=== PATIENT | female | born 2000 | race Caucasian/White ===

== ENCOUNTER 2020-03-13 10:10 | Outpatient (REF) | payer OTHER, SELFPAY ==
[2020-03-15 15:42] LABS: C. trachomatis RNA TMA NOT DETECTED (NOT DETECTED); N. gonorrhoeae RNA TMA NOT DETECTED (NOT DETECTED)
== END 2020-03-13 10:11 | disposition home or self-care (01) ==
LOC: HO.LAB 10:10
PROVIDERS: Visit Provider Advanced Practice Midwife
DX: Z01.419 Encounter for gynecological examination (general) (routine) without abnormal findings (principal); Z11.3 Encounter for screening for infections with a predominantly sexual mode of transmission
CPT/HCPCS: 36415; 87491; 87591; 88142

== ENCOUNTER → 2020-11-12 11:53 | Outpatient (BNVA) | payer OTHER, SELFPAY | PROVIDERS: Visit Provider Advanced Practice Midwife ==

== ENCOUNTER → 2020-12-18 14:04 | Outpatient (BNVA) | payer OTHER, SELFPAY | PROVIDERS: Visit Provider Advanced Practice Midwife | DX: Z30.46 Encounter for surveillance of implantable subdermal contraceptive (principal) | CPT/HCPCS: 11982 ==

== ENCOUNTER 2021-03-17 13:08 | Outpatient (REF) | payer OTHER, SELFPAY ==
[2021-03-18 07:22] LABS: CT PCR NOT DETECTED (Not Detect.)
[2021-03-18 07:23] LABS: NG PCR NOT DETECTED (Not Detect.)
== END 2021-03-17 13:09 | disposition home or self-care (01) ==
LOC: HO.LAB 13:08
PROVIDERS: Visit Provider Advanced Practice Midwife
DX: Z11.3 Encounter for screening for infections with a predominantly sexual mode of transmission (principal)
CPT/HCPCS: 87491; 87591

== ENCOUNTER 2024-12-03 15:53 | Emergency (ER) | payer OTHER, SELFPAY ==
--- NOTE | ~2024-12-03 | US_ITS ---
CLINICAL HISTORY: heavy vaginal bleeding x 1 mo US pelvis transvaginal and transabdominal with Doppler Comparison: US - PELVIS ULTRASOUND [id number] - 12/14/13 18:35 EDT Findings: Transvaginal and transabdominal scanning performed. Anteverted uterus is 7.7 cm length. Normal myometrium. Heterogeneous endometrium measures 11 mm in thickness. Scattered nabothian cysts. Right ovary not visualized. Left ovary 2.5 x 1.4 x 1.8 cm, only seen on transabdominal exam. Normal color Doppler of of the left ovary identified. Spectral analysis not provided. No free fluid. IMPRESSION: No evidence of left ovarian torsion. Nonvisualization of the right ovary. Thickened endometrium may be a combination of physiologic and/or related to vaginal bleeding. Clinical correlation with follow-up advised. This document has been electronically signed by: Ritchie Beard MD on 12/03/2024 17:34:04
[2024-12-03 15:59] VITALS: BP 154/82; PULSE 96; RESP 18; TEMP 36.6; O2SAT 97; BMI 36.9
--- NOTE | 2024-12-03 16:00 | ED_ITS ---
[facility] - General Adult General Chief complaint: Vaginal Bleeding Stated complaint: 1 month w menstraul, blood clots yesterday Time Seen by Provider: 12/03/24 20:42 Source: patient Mode of arrival: ambulatory Limitations: no limitations History of Present Illness ED Provider: Dr. Hamm [facility] narrative: 24-year-old female presented hospital today for intermittent abdominal cramping and vaginal bleeding for the past month. Patient stated that normally she does have irregular menses. She has been complaining of lower abdominal cramping associated with this vaginal bleeding. She was taking Excedrin where she noticed that her vaginal bleeding got worse therefore she presents to the ER for further evaluation. No other concerns at this time. She does follow up [facility] for OBGYN knee. Related Data Allergies Allergy/AdvReac Type Severity Reaction Status Date / Time No Known Allergies Allergy Verified 12/03/24 16:02 Review of Systems 2 Review of Systems: Pertinent review of systems as mentioned in HPI. All other system otherwise negative. [facility] Past Medical History [facility] Narrative: Medical history as mentioned in HPI Surgical History Hx of appendectomy Family History Family History Father HTN (hypertension) CVD (cardiovascular disease) Mother Heart disease Pacemaker Arthritis Fibromyalgia Hypothyroid Hypotension CVD (cardiovascular disease) Maternal Grandmother Diabetes mellitus Thyroid disease Paternal Grandmother Breast cancer Paternal Grandfather Stomach cancer Social History Social History Alcohol intake: current Alcohol intake frequency: holidays/special occasions only Substance Use Type: Marijuana Advance Directives: No Advance Directives Information Provided: No Sexual orientation: Straight/Heterosexual Gender identity: Female Physical Exam ED Exam Exam: General: Pleasant, no distress, interacting appropriately Head: Normacephalic, atraumatic Cardiovascular: regular rate, regular rhythm, no murmurs, rubbing, gallops Respiratory: CTAB, no wheeze, rales, rhonchi Gastrointestinal: Soft, non distended, non tender, non guarding Skin: Warm and dry Psychiatric: Appropriate mood and thoughts Vital Signs: Vital Signs - 24 hr 12/03/24 15:59 12/03/24 16:45 Temperature 98 F 96.6 F L Pulse Rate 96 100 Respiratory Rate 18 16 Blood Pressure 154/82 H 146/88 H Pulse Oximetry 97 97 Oxygen Delivery Method Room Air Room Air BMI result Body Mass Index 36.9 Course Course Course Narrative: This is a rapid medical exam performed by Megan García NP: Additional HPI, ROS, PE not included below will be deferred to primary provider. Patient is a 24y/o F referred to the ED from urgent care for one month of heavy vaginal bleeding. Also having lower abdominal cramping. Upreg negative there. Plan: labs, UA Medical Decision Making Medical Decision Making [facility] Narrative: 24-year-old female presented hospital for abnormal vaginal bleeding intermittent for the past month. Ultrasound was negative. No signs of abnormality. Patient's hCG was negative. Hemoglobin is appropriate at 12.7. The patient does not have any signs of hemorrhagic shock. Patient is stable. Discussed the results with the patient. We will plan to discharge her we will follow up with the [facility] OBGYN doctor. She agrees and understands this plan all questions were addressed. Patient will be discharged home. Ultrasound report was provided to the patient. Differential Diagnosis Differential Diagnoses: The differential diagnosis associated with the presentation includes Uterine bleed, , ectopic Lab Data [facility] Lab Attestation statement: I reviewed the patient's lab results. 12/03/24 16:13 12/03/24 16:13 Labs: Lab Results 12/03/24 Range/Units 16:13 WBC 6.9 (4.8-10.8) X10*3/uL RBC 4.62 (4.20-5.50) X10*6/uL Hgb 12.5 (12.0-16.0) g/dl Hct 38.4 (37.0-47.0) % MCV 83.1 (80.0-98.0) fL MCH 27.1 (27.0-33.0) pg MCHC 32.6 (31.0-35.0) g/dl RDW 13.7 (11.0-16.0) % Plt Count 318 (160-400) X10*3/uL MPV 8.7 L (9.4-12.3) fL Immature Gran % (Auto) 0.3 (0.0-0.4) % Neut % (Auto) 63.5 (45-73) % Lymph % (Auto) 27.9 (20-40) % [place] % (Auto) 6.6 (2-11) % Eos % (Auto) 1.3 (0-4) % Baso % (Auto) 0.4 (0-2) % Lymph # (Auto) 1.9 (1.2-4.9) X10*3/uL [place] # (Auto) 0.5 (0.1-1.2) X10*3/uL Eos # (Auto) 0.1 (0.0-0.4) X10*3/uL Baso # (Auto) 0.0 (0.0-0.2) X10*3/uL Abs Immat Gran (auto) 0.02 (0.00-0.03) X10*3/uL Absolute Neuts (auto) 4.4 (2.0-8.3) x10*3/uL Absolute Nucleated RBC 0.000 (0.0-0.012) X10*3/uL Nucleated RBC % (auto) 0.0 (0.0-0.2) /100WBC Sodium 141 (135-145) mmol/L Potassium 4.0 (3.3-5.1) mmol/L Chloride 106 (96-108) mmol/L Carbon Dioxide 27 (22-29) mmol/L Anion Gap 12 (12-20) BUN 8 L (9-16) mg/dL Creatinine 0.71 (0.5-1.4) mg/dL Estim Creat Clear Calc 126.4 Estimated GFR > 60 Random Glucose 91 (60-115) mg/dL Calcium 9.2 (8.4-10.2) mg/dL Total Bilirubin 0.8 (0.0-1.0) mg/dL AST 23 (5-31) U/L ALT 20 (0-31) U/L Alkaline Phosphatase 118 H (39-117) U/L Total Protein 8.4 H (6.5-8.0) g/dL Albumin 4.6 (3.5-5.0) g/dL Beta HCG, Quant < 2 mIU/mL Blood Type O Positive Antibody Screen NEGATIVE Independent Interpretation I performed an independent interpretation of an: Ultrasound Radiology Impression Discussion of test interpretation with radiology: I have reviewed the radiologist's reading. Discharge Plan Discharge Clinical Impression: Vaginal bleeding Patient Disposition: Home, Self-Care Instructions: Abnormal (Dysfunctional) Uterine Bleeding (ED) Additional Instructions: Follow up with your [facility] doctor. Print Language: Ma[place]
[2024-12-03 16:19] LABS: MANUAL DIFF FLAG NO
[2024-12-03 16:23] LABS: Hematocrit 38.4 % (37.0-47.0); Hemoglobin 12.5 g/dl (12.0-16.0); Imm Gran Abs Auto 0.02 X10*3/uL (0.00-0.03); Imm Gran Pct Auto 0.3 % (0.0-0.4); Lymphocytes Absolute Auto 1.9 X10*3/uL (1.2-4.9); Mean Corpuscular HGB Conc 32.6 g/dl (31.0-35.0); Mean Corpuscular Hemoglobin 27.1 pg (27.0-33.0); Mean Corpuscular Volume 83.1 fL (80.0-98.0); NRBC Abs Auto 0.000 X10*3/uL (0.0-0.012); NRBC Pct Auto 0.0 /100WBC (0.0-0.2); Platelet Count 318 X10*3/uL (160-400); Red Blood Count 4.62 X10*6/uL (4.20-5.50); White Blood Count 6.9 X10*3/uL (4.8-10.8)
[2024-12-03 16:45] VITALS: BP 146/88; PULSE 100; RESP 16; TEMP 35.9; O2SAT 97
[2024-12-03 17:02] LABS: Alanine Aminotransferase 20 U/L (0-31); Albumin Level 4.6 g/dL (3.5-5.0); Alkaline Phosphatase 118 U/L (39-117); Anion Gap 12 (12-20); Aspartate Amino Transferase 23 U/L (5-31); Blood Urea Nitrogen 8 mg/dL (9-16); Calcium 9.2 mg/dL (8.4-10.2); Carbon Dioxide 27 mmol/L (22-29); Chloride 106 mmol/L (96-108); Creatinine Clr Calc Pharmacy 126.4; Estimated Glomerular Filt Rate > 60; Potassium 4.0 mmol/L (3.3-5.1); Sodium 141 mmol/L (135-145); Total Protein 8.4 g/dL (6.5-8.0)
--- NOTE | 2024-12-03 20:22 | PC.NURSE ---
RN to bedside for introductions. She denies the presence of pain, discomfort and/or cramping reporting that she has continued vagina bleeding. Pt is well appearing, skin warm and dry, alert, oriented, and mentating appropriately and without distress. She confirms the use of a pad at this time and has been asked to change to assist with proper provider assessment when the time comes.
[2024-12-03 21:25] VITALS: BP 146/88; PULSE 100; RESP 16; TEMP 35.9; O2SAT 97
== END 2024-12-03 21:05 | disposition home or self-care (01) ==
PROVIDERS: Registered Nurse Emergency; Emergency Provider Student in an Organized Health Care Education/Training Program
DX: N93.9 Abnormal uterine and vaginal bleeding, unspecified (principal)
CPT/HCPCS: 36415; 76830; 76856; 80053; 84702; 85025; 86850; 86900; 86901; 99284

== ENCOUNTER → 2024-12-03 16:02 | Outpatient (BNV) | payer OTHER, SELFPAY | PROVIDERS: Visit Provider Radiology Diagnostic Radiology | DX: N93.9 Abnormal uterine and vaginal bleeding, unspecified (principal) | CPT/HCPCS: 76830; 76856 ==